=== PATIENT | female | born 1960 | race Caucasian/White ===

== ENCOUNTER → 2024-05-24 07:17 | Outpatient (REF) | payer MEDICARE, OTHER, SELFPAY | LOC: RCS 07:17 | PROVIDERS: ATTENDING PHYSICIAN Internal Medicine Cardiovascular Disease; FAMILY PHYSICIAN Family Medicine | DX: R07.9 Chest pain, unspecified (principal); R00.0 Tachycardia, unspecified | CPT/HCPCS: 93306 ==

== ENCOUNTER → 2024-05-31 13:12 | Outpatient (REF) | payer MEDICARE, OTHER, SELFPAY | LOC: RCS 13:12 | PROVIDERS: ATTENDING PHYSICIAN Internal Medicine Cardiovascular Disease; FAMILY PHYSICIAN Family Medicine | DX: R07.9 Chest pain, unspecified (principal); R00.0 Tachycardia, unspecified | CPT/HCPCS: 93017 ==

== ENCOUNTER → 2024-08-30 07:41 | Outpatient (REF) | payer MEDICARE, OTHER, SELFPAY | LOC: RAD 07:41 | PROVIDERS: ATTENDING PHYSICIAN Internal Medicine Cardiovascular Disease; FAMILY PHYSICIAN Family Medicine | DX: I10 Essential (primary) hypertension (principal); E78.5 Hyperlipidemia, unspecified; Z82.49 Family history of ischemic heart disease and other diseases of the circulatory system | CPT/HCPCS: 75571 ==

== ENCOUNTER → 2024-10-11 13:09 | Outpatient (REF) | payer MEDICARE, OTHER, SELFPAY | LOC: HWRAD 13:09 | PROVIDERS: ATTENDING PHYSICIAN Obstetrics & Gynecology Gynecology; FAMILY PHYSICIAN Family Medicine | DX: Z12.31 Encounter for screening mammogram for malignant neoplasm of breast (principal); Z78.0 Asymptomatic menopausal state; M85.80 Other specified disorders of bone density and structure, unspecified site | CPT/HCPCS: 77063; 77067; 77080 ==